=== PATIENT | female | born 1930 | race Caucasian/White ===

== ENCOUNTER 2017-08-18 15:49 | Emergency (ER) | payer MEDICARE, OTHER ==
--- NOTE | 2017-08-18 18:46 | UC ---
Lower Extremity/Ankle HPI - HPI Summary HPI Summary: pt fell last pm when she missed a step. she rolled her R ankle. she is c/o swelling and pain. ndeny hit to head, neck/back pain. denies any other injruy. - History of Current Complaint Stated Complaint: RIGHT ANKLE INJURY Time Seen by Provider: 08/18/17 18:31 Hx Obtained From: Patient, Family/Youth Nutritional Monitor ?: No Onset/Duration: Sudden Onset Severity Initially: Moderate Severity Currently: Moderate Aggravating Factor(s): Standing, Ambulation Alleviating Factor(s): Nothing Able to Bear Weight: Yes - Allergies/Home Medications Allergies/Adverse Reactions: Allergies Allergy/AdvReac Type Severity Reaction Status Date / Time latex Allergy Intermediate rash/itchin Verified 08/18/17 18:53 g metronidazole [From Flagyl] Allergy Intermediate rash/itchin Verified 08/18/17 18:53 g sulfamethoxazole Allergy Intermediate Rash Verified 08/18/17 18:53 [From Bactrim] trimethoprim [From Bactrim] Allergy Intermediate Rash Verified 08/18/17 18:53 Home Medications: Home Medications Bumetanide TAB* [Bumex 2 MG TAB*] 4 mg PO DAILY 08/18/17 [History Confirmed ] PMH/Surg Hx/FS Hx/Imm Hx Cardiovascular History: Hypertension, Pacemaker/ICD, Atrial Fibrillation Cancer History: Colorectal Cancer, Breast Cancer - Surgical History Surgical History: Yes Surgery Procedure, Year, and Place: CATARACTS. HYSTERECTOMY 1971. COLON RESECTION 1993. BREAST CA LUMPECTOMY 1994. AORTIC VALVE PROSTHESIS 1998. HERNIA REPAIR. GALLBLADDER . pacer - Social History Occupation: Retired Lives: With Family Alcohol Use: None Substance Use Type: None Smoking Status (MU): Never Smoked Tobacco - Immunization History Most Recent Influenza Vaccination: April 2014 Most Recent Tetanus Shot: unknown Most Recent Pneumonia Vaccination: a few years ago, states withing the past 10 yrs Review of Systems Constitutional: Negative Skin: Negative Eyes: Negative ENT: Negative Respiratory: Negative Cardiovascular: Negative Gastrointestinal: Negative Genitourinary: Negative Motor: Negative Neurovascular: Negative Musculoskeletal: Arthralgia - R ankle, Edema - R ankle Neurological: Negative Psychological: Negative Is Patient Immunocompromised?: No All Other Systems Reviewed And Are Negative: Yes Physical Exam Triage Information Reviewed: Yes Appearance: Well-Appearing Vital Signs Reviewed: Yes Eyes: Positive: Conjunctiva Clear ENT: Positive: Normal ENT inspection Neck: Positive: Supple, Nontender, No Lymphadenopathy Respiratory: Positive: Lungs clear Cardiovascular: Positive: RRR, Other: - click or artificial valve noted Abdomen Description: Positive: Nontender, No Organomegaly, Soft Bowel Sounds: Positive: Present Musculoskeletal: Positive: Other: - RLE: hip, knee, ankle, achilles non tender. R ankle mildly swollen and tender over distal fibula. Foot non tender with full s/v/m function. neck/back/head are atraumatic. Neurological: Positive: Alert Psychological: Positive: Normal Response To Family, Age Appropriate Behavior Skin Exam: Normal Diagnostics - Radiology No standard instances Xray Interpretation: Positive (See Comments) - tiny avulsion fx lateral malleolus Radiology Interpretation Completed By: Radiologist Lower Extremity Course/Dx - Course Course Of Treatment: avulsion distal fibula, cam boot with orto f/u - Differential Dx/Diagnosis Provider Diagnoses: Avulsion fracture R dital fibula Discharge - Discharge Plan Condition: Stable Disposition: HOME Patient Education Materials: Ankle Fracture (ED) Referrals: Gabriel Perez MD [Primary Care Provider] - If Needed Gregory Lowe MD [Medical Doctor] - As Soon As Possible Additional Instructions: WEAR THE BOOT AND USE YOUR WALKER UNTIL CLEARED BY ORTHOPEDICS
[2017-08-18 18:48] VITALS: BP 128/60
--- NOTE | 2017-08-18 19:27 | RAD ---
INDICATION: Fall. Pain and swelling COMPARISON: None TECHNIQUE: AP, lateral, and oblique views were obtained. FINDINGS: There is marked osteopenia. There is a tiny avulsion fracture from the lateral malleolus. There are no other fractures. There is mild arthritic change about the ankle mortise. There is lateral soft tissue swelling. There are vascular calcifications. IMPRESSION: TINY AVULSION FRACTURE FROM THE LATERAL MALLEOLUS
== END 2017-08-18 20:02 | disposition home or self-care (01) ==
LOC: UCCORT 15:49
DX: S82.61XA Displaced fracture of lateral malleolus of right fibula, initial encounter for closed fracture (principal); W10.9XXA Fall (on) (from) unspecified stairs and steps, initial encounter; Y93.9 Activity, unspecified; Y92.9 Unspecified place or not applicable
CPT/HCPCS: 99212; G0463